=== PATIENT | female | born 1960 | race Two or more races ===

== ENCOUNTER → 2021-04-01 | Outpatient (CLI) | payer OTHER ==
[2021-04-01 16:16] LABS: Creatinine, Urine Random 42.6 mg/dL (27.00-270.00); Microalb/Creat Ratio UR, Rand 17.653 mg/g (0.000-30.000); Microalbumin, Random Urine 7.52 mg/L (0.000-20.000)
== END ==
LOC: LAB SHORT 11:24 → LAB 11:24
PROVIDERS: Family Medicine
DX: E11.9 Type 2 diabetes mellitus without complications (principal)
CPT/HCPCS: 82043; 82570

== ENCOUNTER → 2022-09-17 | Outpatient (CLI) | payer OTHER | END | disposition home or self-care (01) | LOC: LAB 13:00 → LAB SHORT 13:00 | DX: R10.9 Unspecified abdominal pain (principal) | CPT/HCPCS: 87338 ==